=== PATIENT | male | born 1975 | race Caucasian/White ===

== ENCOUNTER 2016-12-10 14:50 | Emergency (ER) | payer BC ==
[~2016-12-10] VITALS: Ht 175.3 cm; Wt 64.5 kg
[2016-12-10] MEDS ORDERED: ANDRODERM5 MG/24 HR TD (14:59)
[2016-12-10 15:31] LABS: COLLECTION METHOD CLEAN CATCH
[2016-12-10 15:45] LABS: CALCIUM 9.2 mg/dL (8.4-10.2); CREATININE, serum 0.87 mg/dL (0.66-1.25); POTASSIUM 3.9 mmol/L (3.4-5.0)
[2016-12-10 15:54] LABS: BASO % 0.2 % (0.0-2.0); GRAN # 14.5 (1.4-6.5); GRAN % 87.5 % (42.2-75.2); HEMATOCRIT 43.2 % (42.0-52.0); HEMOGLOBIN 15.2 g/dl (13.5-18.0); LYMPH # 0.8 (1.2-3.4); LYMPH % 4.6 % (20.0-51.0); MEAN CELL VOLUME 88 fl (80.0-100.0); MEAN CORPUSCULAR HEMOGLOBIN 31 pg (27.0-31.0); MEAN CORPUSCULAR HGB CONC 35 g/dl (33.0-37.0); MONO # 1.2 (0.1-0.6); MONO % 7.3 % (1.7-9.3); PLATELET COUNT 203 K/mm3 (130-400); WHITE BLOOD COUNT 16.6 K/mm3 (4.8-10.8)
[2016-12-10 16:04] LABS: PH 7 (5-8); SQUAMOUS EPITHELIAL 0-2 /hpf; URINE APPEARANCE Hazy; URINE BACTERIA Occasional /hpf; URINE BILIRUBIN Negative (NEGATIVE); URINE BLOOD 1+ (NEGATIVE); URINE COLOR Yellow; URINE GLUCOSE Negative (NEGATIVE); URINE KETONE Trace (NEGATIVE); URINE LEUKOCYTE ESTERASE 3+ (NEGATIVE); URINE PROTEIN(semi-quant) Negative (NEGATIVE); URINE RBC 0-2 /hpf; URINE UROBILINOGEN Negative (NEGATIVE); URINE WBC >50 /hpf
[2016-12-10 17:57] VITALS: PULSE 125; TEMP 100.9
[2016-12-10] MEDS ORDERED: DOXYCYCLINE 10100 MG PO (18:18)
[2016-12-10 18:33] VITALS: BP 125/84
[2016-12-13] MEDS ORDERED: BACTRIM DS 8001 TAB PO (13:14)
== END 2016-12-10 19:19 | disposition home or self-care (01) ==
LOC: COL.ER 14:50
PROVIDERS: Emergency Medicine
DX: N45.1 Epididymitis (principal)
CPT/HCPCS: J0696; J7030

== ENCOUNTER 2017-01-16 17:46 | Inpatient (IN) | payer BC ==
[~2017-01-16] VITALS: Ht 177.8 cm; Wt 66.1 kg
[~2017-01-16 17:46] MED LIST: ANDRODERM5 MG/24 HR TD; BACTRIM DS 8001 TAB PO; DOXYCYCLINE 10100 MG PO
[2017-01-16 18:36] LABS: BASO % 0.7 % (0.0-2.0); EOS % 0.7 % (0-4.0); GRAN # 3.1 (1.4-6.5); GRAN % 56.9 % (42.2-75.2); HEMATOCRIT 46.3 % (42.0-52.0); HEMOGLOBIN 16.2 g/dl (13.5-18.0); LYMPH # 1.8 (1.2-3.4); LYMPH % 32.9 % (20.0-51.0); MEAN CELL VOLUME 89 fl (80.0-100.0); MEAN CORPUSCULAR HEMOGLOBIN 31 pg (27.0-31.0); MEAN CORPUSCULAR HGB CONC 35 g/dl (33.0-37.0); MEAN PLATELET VOLUME 11.1 fl (7.4-10.4); MONO # 0.5 (0.1-0.6); MONO % 8.4 % (1.7-9.3); PLATELET COUNT 209 K/mm3 (130-400); RED BLOOD COUNT 5.19 M/mm3 (4.20-5.60); WHITE BLOOD COUNT 5.5 K/mm3 (4.8-10.8)
[2017-01-16 19:30] LABS: ALANINE AMINOTRANSFERASE 31 U/L (21-72); ALKALINE PHOSPHATASE 59 U/L (50-136); ANION GAP 12 mmol/L (7-16); BLOOD UREA NITROGEN 10 mg/dL (9-20); CALCIUM 9.8 mg/dL (8.4-10.2); CARBON DIOXIDE 29 mmol/L (22-30); CHLORIDE 99 mmol/L (98-107); CREATINE KINASE 43 U/L (55-170); CREATININE, serum 0.87 mg/dL (0.66-1.25); GLUCOSE 103 mg/dL (74-106); LIPASE 79 U/L (23-300); POTASSIUM 3.6 mmol/L (3.4-5.0); SODIUM 140 mmol/L (137-145); TOTAL PROTEIN 7.8 gm/dL (6.4-8.2)
[2017-01-16 19:42] LABS: TROPONIN-I < 0.012 ng/mL (0.000-0.034)
[2017-01-16 23:45] VITALS: BP 122/68; PULSE 80; TEMP 98.3
[2017-01-17] VITALS (15 sets, daily range): BP systolic 115–142; BP diastolic 67–87; PULSE 76–96; TEMP 98.1–99
[2017-01-17 06:03] LABS: BASO % 0.4 % (0.0-2.0); EOS % 0.4 % (0-4.0); GRAN # 4.9 (1.4-6.5); GRAN % 62.8 % (42.2-75.2); HEMATOCRIT 42.8 % (42.0-52.0); HEMOGLOBIN 14.8 g/dl (13.5-18.0); LYMPH # 2.1 (1.2-3.4); LYMPH % 26.8 % (20.0-51.0); MEAN CELL VOLUME 88 fl (80.0-100.0); MEAN CORPUSCULAR HEMOGLOBIN 31 pg (27.0-31.0); MEAN CORPUSCULAR HGB CONC 35 g/dl (33.0-37.0); MEAN PLATELET VOLUME 10.9 fl (7.4-10.4); MONO # 0.7 (0.1-0.6); MONO % 9.3 % (1.7-9.3); PLATELET COUNT 201 K/mm3 (130-400); RED BLOOD COUNT 4.85 M/mm3 (4.20-5.60); WHITE BLOOD COUNT 7.8 K/mm3 (4.8-10.8)
[2017-01-17 06:15] LABS: CALCIUM 9.3 mg/dL (8.4-10.2); CREATININE, serum 0.86 mg/dL (0.66-1.25); POTASSIUM 3.9 mmol/L (3.4-5.0)
[2017-01-17 06:27] LABS: TROPONIN-I 0.054 ng/mL (0.000-0.034)
[2017-01-17 09:04] LABS: INR 1.2 (0.8-3.0); PROTHROMBIN TIME 13.5 SECONDS (9.7-12.8)
[2017-01-17] MEDS ORDERED: ASPIRIN E.C. 8181 MG PO (11:06)
[2017-01-17] MEDS ORDERED: LIPITOR 10MG10 MG PO (11:06)
[2017-01-17 11:57] LABS: CHOLESTEROL RISK RATIO 5.2
== END 2017-01-17 16:25 | disposition home or self-care (01) | DRG 282 ==
LOC: COL.ER 17:46 → MEDICAL 22:02 → EDBEDREQ 23:17 → MEDICAL 23:59
PROVIDERS: Emergency Medicine; Internal Medicine Cardiovascular Disease; Nurse Practitioner; Nurse Practitioner Family
PROC: B2111ZZ Fluoroscopy of Multiple Coronary Arteries using Low Osmolar Contrast (ICD-10-PCS; principal; 2017-01-17)
PROC: B2151ZZ Fluoroscopy of Left Heart using Low Osmolar Contrast (ICD-10-PCS; 2017-01-17)
DX: I21.4 Non-ST elevation (NSTEMI) myocardial infarction (principal); E87.6 Hypokalemia
CPT/HCPCS: 99223-AI; C1760; C1894; C9113; J1650; J2250; J3010; J7030; Q9967